=== PATIENT | female | born 1975 | race Two or more races ===

== ENCOUNTER 2025-02-14 08:44 | Emergency (ER) | payer OTHER, SELFPAY ==
[2025-02-14 08:47] VITALS: BP 130/92
--- NOTE | 2025-02-14 09:02 | ED.GENMED ---
History of Present Illness
General
Chief Complaint: Abdominal Symptoms
Source: patient
Exam Limitations: none
Time Seen by Provider: 02/14/25 09:01
Nursing documentation reviewed up to this point in time: agreed with
History of Present Illness
History of Present Illness:
50 yo female w hx hysterectomy presents for epigastric and RUQ pain. Woke 2 days ago with the pain, and also developed 'loose stools.' Had 5 loose stools yesterday and one today an hour ago.
She has had chronic intermittent RUQ pains with neg US, CT scans (last was 2 yrs ago) but this feels different. 'It feels like something is trying to pop out from my lower ribs if I sit forward.' She feels sharp pain with walking and leaning forward
'like something's under my ribcage.' Eating makes pain worse. Took Tylenol with no relief. Pain resolves when laying flat.
Past History
Past History
ED Past Surgical History: Gynecological (hysterectomy) and Orthopedic
Social History
Tobacco: Non-smoker
Alcohol: Occasional
Personal:
Living: with family
Employment: Not employed
Review of Systems
Review of Systems
Allergies reviewed?: Yes
All Other Systems: ROS reviewed and negative except as documented in HPI and ROS
Constitutional: Denies fever or chills
Respiratory: Denies trouble breathing
Cardiac: Denies chest pain or palpitations
ABD/GI: Reports abdominal pain, nausea and diarrhea ('loose' stools); Denies vomiting, bloody stools or black stools
: Denies dysuria, frequency, flank pain, difficulty voiding or urgency
Musculoskeletal: Reports no symptoms
Skin: Reports no symptoms
Neurological: Reports other (chronic right elbow and forearm pain, takes Nortriptyline for ulnar nerve pain)
Phy Exam
Physical Exam
Physical Exam:
GENERAL: No acute distress. A&Ox3.
CONSTITUTIONAL: Afebrile.
EYES: clear, conjunctivae normal
ENMT: moist mucus membranes
RESPIRATORY: Regular respirations, nonlabored, lungs clear.
CARDIOVASCULAR: Regular rate and rhythm, no murmurs, no rubs.
GI: Soft, nontender, normal BS
MUSCULOSKELETAL: Moves with ease. Well perfused.
SKIN: Warm, dry, pink
PSYCH: Normal mood and affect. Well kept, interactive and appropriate
NEUROLOGIC: Awake, alert and oriented. No focal neurological deficits
Course
Orders/Labs/Results
Orders:
Orders
02/14/25 08:45
Electrocardiogram (*1) Urgent
Reason for Study: Chest Pain
EKG- Treatment ONCE
02/14/25 09:18
Complete Blood Count/With Diff Urgent
US Abdomen Complete/Upper Urgent
Comment:
Reason For Exam: pain under right lower ribcage, loose stools
02/14/25 09:58
Comprehensive Metabolic Panel Urgent
Lipase Urgent
Abnormal Lab Results
02/14/25 02/14/25
09:18 09:58
MCH 32.4 H pg
(27.0-31.0)
Glucose 108 H mg/dl
(70-99)
02/14/25 09:18
02/14/25 09:58
Vital Signs
Initial and Last Documented VS:
Initial Vital Signs
Temp Pulse Resp BP Pulse Ox
98.3 F 87 16 130/92 100
02/14/25 08:47 02/14/25 08:47 02/14/25 08:47 02/14/25 08:47 02/14/25 08:47
Last Documented Vital Signs
Temp Pulse Resp BP Pulse Ox
98.3 F 85 16 113/70 97
02/14/25 08:47 02/14/25 11:44 02/14/25 11:44 02/14/25 11:44 02/14/25 11:44
[employer] consulted with Physician
[employer] consulted with physician?: Yes
Name of Physician Consulted: Pipe
MDM/Problems Addressed
Differential Diagnosis Includes:
abdominal mass, biliary colic, cholelithiasis, cholecystitis, musculoskeletal pain
MDM/Problems Addressed:
50 yo female w hx hysterectomy presents for epigastric and RUQ pain. Woke 2 days ago with the pain, and also developed 'loose stools.' Had 5 loose stools yesterday and one today an hour ago.
She has had chronic intermittent RUQ pains with neg US, CT scans (last was 2 yrs ago) but this feels different. 'It feels like something is trying to pop out from my lower ribs if I sit forward.' She feels sharp pain with walking and leaning forward
'like something's under my ribcage.' Eating makes pain worse. Took Tylenol with no relief. Pain resolves when laying flat.
NAD EKG: NSR
Unable to elicit pain with deep palpation of abdomen or ribs, pt states 'it feels like something is pushing out from under my ribs.'
11:00 a.m.
CBC normal
CMP normal
US upper abd Radiology report read: IMPRESSION:
1. Mild diffuse liver disease.
2. No sonographic evidence for biliary obstruction, cholelithiasis, or acute cholecystitis.
3. Large 7.8 cm left upper pole renal cyst. Not on excess stress or stress test
patient given a copy of the ultrasound report all questions answered.
Negative workup reassuring
Recommend OTC PPI as her insurance costs are higher for same drugs
May be GERD, referred to GI if continues
*EKG
EKG Intrepretation Date: 02/14/25
Interpretation: normal
Heart Rate: 87
Rate: normal
Rhythm: sinus
Gary: normal axis
Interval: normal interval
QRS Pattern: normal QRS
Ischemia: no ischemia
*Critical Care Note
Total Time (30-74mins, 75-104mins- exclusive of procedures): Not Applicable
ED Attending Note
-
Portions of this chart may have been created with voice recognition software.� Occasional wrong word or��sound alike� substitutions may have occurred due to the inherent limitations of voice recognition software.
Discharge Plan
Departure
Patient Disposition: Home (Routine Discharge)
Date of Disposition: 02/14/25
Time of Disposition: 11:38
Patient with high blood pressure during this ER visit?: No
Condition: Good
Discharge Problem:
Acute epigastric pain
Instructions: Acid reflux and GERD in adults, Abdominal Pain
Referrals:
Elijah Gomez MD [Family Provider] -
Angy Whalen MD [Active] - Next open appointment
Activity Restrictions/Additional Instructions:
As we discussed, you may be having GERD.
Take ONE of the following over the counter medications for two weeks: Prilosec, Nexium (Esomeprazole), Omeprazole, Protonix (Pantoprazole)
Let the GI doctor know if it helps.
Interventions
Interventions:
*Risk Screen - Suicide Last Done: 02/14/25 09:13
*General Assessment Last Done: 02/14/25 09:13
*Neglect/Abuse Screening Last Done: 02/14/25 09:13
*ED- Fall Risk Assessment Last Done: 02/14/25 09:12
*ED COVID-19 Vaccine History Last Done: 02/14/25 09:12
*Nursing Disposition Last Done: 02/14/25 11:44
ME-Untkcm-Kdnsrajoqj Assessment Last Done: 02/14/25 09:13
Discharge Date and Time
Discharge Date/Time: 02/14/25 11:47
Print Language: UKRAINIAN
[2025-02-14 09:25] VITALS: BMI 22.6
[2025-02-14 09:37] LABS: % Basophils 1.1 % (0-2); % Eosinophils 1.4 % (0-6); % Immature Granulocytes 0.2 % (0-0.5); % Lymphocytes 27.3 % (20.5-51.1); % Monocytes 6.3 % (1.7-9.3); % Neutrophils 63.7 % (42.2-75.2); Absolute Basophils 0.1 10^3/uL (0-0.2); Absolute Eosinophils 0.1 10^3/uL (0-0.7); Absolute Lymphocytes 1.6 10^3/uL (1.2-3.4); Absolute Monocytes 0.4 10^3/uL (0.1-0.6); Absolute Neutrophils 3.6 10^3/uL (1.4-6.5); Mean Corp Hgb Conc. 34.9 g/dL (33.0-37.0); Mean Corpuscular Hgb 32.4 pg (27.0-31.0); Mean Corpuscular Volume 92.9 fL (81.0-99.0); Nucleated Red Blood Cells % 0 %; Platelet Count 272 10^3/uL (130-400); Red Blood Cell Count 4.63 10^6/uL (4.20-5.40); Red Cell Dist. Width 12.3 % (11.5-14.5); White Blood Cell Count 5.7 10^3/uL (4.8-10.8)
[2025-02-14 10:24] LABS: ALT (SGPT) 17 U/L (0-35); AST (SGOT) 23 U/L (14-36); Albumin 4.2 g/dl (3.5-5.0); Alkaline Phosphatase 84 U/L (38-126); Blood Urea Nitrogen 15 mg/dl (7-17); Calcium 9.6 mg/dl (8.4-10.2); Carbon Dioxide 26 mmol/L (22-30); Estimated Creatinine Clearance 100 ml/min; Glucose 108 mg/dl (70-99); Lipase 46 U/L (23-300); Potassium 4.6 mmol/L (3.5-5.1); Sodium 135 mmol/L (135-145); Total Bilirubin 0.8 mg/dl (0.2-1.3); Total Protein 6.6 g/dl (6.3-8.2); eGFR > 60.00
[2025-02-14 11:40] LABS: Chloride 107 mmol/L (98-107)
[2025-02-14 11:44] VITALS: BP 113/70
== END 2025-02-14 11:47 | disposition home or self-care (01) ==
LOC: EMR 08:44
PROVIDERS: Registered Nurse; EMERGENCY PHYSICIAN Student in an Organized Health Care Education/Training Program; FAMILY PHYSICIAN Family Medicine
DX: R10.13 Epigastric pain (principal); R10.11 Right upper quadrant pain; N28.1 Cyst of kidney, acquired; Z90.710 Acquired absence of both cervix and uterus
CPT/HCPCS: 99284; 76700; 80053; 83690; 85025; 93005